=== PATIENT | female | born 1995 | race Caucasian/White ===

== ENCOUNTER 2021-01-26 20:23 | Emergency (ER) | payer SELFPAY ==
[~2021-01-26] VITALS: Ht 152.4 cm; Wt 90.7 kg
== END 2021-01-27 01:11 | disposition home or self-care (01) ==
LOC: ED 20:23
PROC: 0HQGXZZ Repair Left Hand Skin, External Approach (ICD-10-PCS; principal; 2021-01-26)
DX: S61.012A Laceration without foreign body of left thumb without damage to nail, initial encounter (principal); W26.0XXA Contact with knife, initial encounter
CPT/HCPCS: 12001; 99282-25

== ENCOUNTER 2022-10-22 10:15 | Emergency (ER) | payer OTHER ==
[~2022-10-22] VITALS: Ht 152.4 cm; Wt 90.2 kg
[2022-10-22] MEDS ORDERED: PRENA1 PEARL S1 EACH PO (10:33)
== END 2022-10-22 14:55 | disposition home or self-care (01) ==
LOC: ED 10:15
DX: O20.0 Threatened abortion (principal); Z3A.01 Less than 8 weeks gestation of pregnancy
CPT/HCPCS: 36415; 76801; 76817; 84703; 86900; 86901; 99284-25

== ENCOUNTER 2023-01-15 17:27 | Emergency (ER) | payer OTHER ==
[~2023-01-15] VITALS: Ht 152.4 cm; Wt 84.8 kg
[~2023-01-15 17:27] MED LIST: PRENA1 PEARL S1 EACH PO
== END 2023-01-15 21:05 | disposition home or self-care (01) ==
LOC: ED 17:27
DX: O99.612 Diseases of the digestive system complicating pregnancy, second trimester (principal); K80.50 Calculus of bile duct without cholangitis or cholecystitis without obstruction; Z3A.17 17 weeks gestation of pregnancy
CPT/HCPCS: 36415; 76705; 80053; 81003; 83690; 85025; 99284-25; J7030

== ENCOUNTER 2023-06-11 17:24 | Inpatient (IN) | payer OTHER ==
[~2023-06-11] VITALS: Ht 152.4 cm; Wt 87.1 kg
--- NOTE | ~2023-06-11 | OR ---
[facility] [address] [place], [place] [address] Draft DATE OF OPERATION: 06/13/2023 SURGEON: Maddy Meade DO CLIP ON SUNGLASSES ASSEMBLER: Roseline Wolf MD. PROCEDURE: Primary low-transverse . PREOPERATIVE DIAGNOSIS: intolerance to labor, gestational diabetes, noncompliant with recommended testing, obesity. POSTOPERATIVE DIAGNOSIS: Term , delivered, gestational diabetes, noncompliant with testing, occiput posterior positioning, obesity. ANESTHESIA: Epidural. COMPLICATIONS: None. FINDINGS: Viable term female weighing 7 pounds and 9 ounces in the left occiput posterior position. Apgars 8 and 9 at 1 and 5 minutes respectively. Normal-appearing bilateral tubes and ovaries. INDICATIONS: The patient is a 27-year-old, who presented for medical induction of labor for gestational diabetes at 39 weeks gestation. She received Cytotec x2. Amniotomy was performed yielding moderate amount of clear fluid. She progressed well to 7 cm at which point, Pitocin was started. Pitocin could not be titrated to adequate contractions due to intolerance. She remained at 7 to 7.5 cm. Variability became consistently minimal with recurrent late decelerations and delivery was advised. Risks, benefits, alternatives were discussed at length. Consents were signed and she agreed to proceed. PROCEDURE: PATIENT NAME: XAVIER QUEZADA OPERATIVE REPORT DATE OF : [birth year] REPORT #: [id number] PHYSICIAN: MADDY MEADE DO PCP: ARSH CARLOS REPORT IS CONFIDENTIAL AND NOT TO BE RELEASED WITHOUT AUTHORIZATION [facility] [address] [place], [place] [address] Draft Patient was taken back to the operating room where she was given 2 g Ancef and 500 mg azithromycin IV. Internal monitors were removed after confirming heart rate presence in the OR. Vaginal prep was performed. She was otherwise prepped and draped in normal sterile fashion and positioned in supine position with a leftward tilt. Low-transverse skin incision was made 3 cm above tubal Pfannenstiel location and was made with a scalpel and carried down to the underlying layer of fascia, which was nicked in midline and extended laterally with Madden scissors. Inferior margin of fascia was grasped and elevated with Santiago clamps. Underlying rectus muscle was dissected off bluntly and sharply with Mdaden scissors. Inferior margin of fascia was released. Superior margin was grasped and elevated with Santiago clamps and in a similar fashion, underlying rectus muscle was dissected off bluntly and sharply with Madden scissors. Peritoneum was entered bluntly and extended with lateral traction. Vignesh retractor was placed without difficulty, after confirming the pelvis was free of intraabdominal adhesions. Hysterotomy was made with a scalpel just above the vesicouterine reflection. Uterus was entered bluntly digitally and baby's head was easily elevated to the level of the hysterotomy having noted to be in the left occiput posterior position. Umbilical cord was present next to head, but no nuchal cord was present. After delivery of the head, shoulders delivered easily followed by remainder of baby's body. Once delivered, baby gave a strong spontaneous cry as cord was doubly clamped and cut and baby was handed to waiting nursery team. Cord blood was collected for type and Doug. Placenta was manually expressed. Uterus was cleared of clots and debris. Stay suture of 0 Monocryl was placed at the right apex of the hysterotomy and hysterotomy was closed in a double-layer closure with 0 Monocryl first in a running locked fashion, second in an imbricating manner. The area of persistent oozing was noted at the left apex. Oazojz-jj-mtsch stitch x2 was placed with 0 Monocryl after the second stitch. Excellent hemostasis was noted. Pelvis was suction irrigated with warm sterile saline. Uterus, tubes, and ovaries were inspected with normal findings as noted above. Vignesh retractor was removed. The peritoneum was closed with 2-0 Vicryl in a running fashion. Rectus muscle was reapproximated midline with 0 Vicryl in a simple interrupted fashion with excellent re-approximation. Perforating vessels were cauterized with Bovie cautery. This layer was suction irrigated with warm sterile saline. Then fascia was closed with 0 Vicryl in a running fashion working first from right apex to midline, then left apex to midline meeting in the middle. Subcutaneous layer was suction irrigated with warm sterile saline. Perforating vessels were cauterized with Bovie cautery and subcutaneous layer was re-approximated with 3-0 Vicryl in a running fashion. Skin was closed colin. Uterus was cleared with minimal bleeding noted. Sponge and instrument counts were all correct and patient was taken to Recovery in stable and satisfactory condition. Maddy Meade DO PATIENT NAME: XAVIER QUEZADA OPERATIVE REPORT DATE OF : [birth year] REPORT #: [id number] PHYSICIAN: MADDY MEADE DO PCP: ARSH CARLOS REPORT IS CONFIDENTIAL AND NOT TO BE RELEASED WITHOUT AUTHORIZATION [facility] [address] [place] [address] Draft EMZ/MODL /[id number] Copies: ~ PATIENT NAME: XAVIER QUEZADA OPERATIVE REPORT DATE OF : [birth year] REPORT #: [id number] PHYSICIAN: MADDY MEADE DO PCP: ARSH CARLOS REPORT IS CONFIDENTIAL AND NOT TO BE RELEASED WITHOUT AUTHORIZATION
--- OUTSIDE RECORDS SUMMARY | ~2023-06-11 | XMS | Continuity of Care Document ---
Demographics + + + | Address | [address] | | | [place] [address] | + + + | Preferred Language | Unknown | + + + | Marital Status | Never | + + + | Taoist Affiliation | Unknown | + + + | Race | White | + + + | Ethnic Group | Not or | + + + Author + + + | Author | [facility] | + + + | Organization | [facility] | + + + | Address | [address] | | | [place] [address] | + + + | Phone | | + + + Care Team Providers + + + + | Care Communication Specialist Name | Role | Phone | + + + + Unavailable | Unavailable | + + + + Unavailable | Unavailable | + + + + Unavailable | Unavailable | + + + + Allergies and Intolerances + + + + + + | date | description | facility | reaction | severity | + + + + + + | (no date) | No Known Drug | [facility] | (no reaction) | (no severity) | | | Allergies | | | | + + + + + + Encounters No information. Functional Status No information. Immunizations No information. Medications No information. Problems + + + + | date | description | facility | + + + + | 2021-01-27 00:00 | Laceration of left thumb | [facility] | + + + + | 2021-01-27 00:00 | Laceration of left thumb | [facility] | + + + + | 2022-03-17 10:51 | PAIN IN RIGHT ELBOW | [facility] | + + + + | 2022-03-21 00:01 | LATERAL EPICONDYLITIS, | [facility] | | | RIGHT ELBOW | | + + + + | 2022-04-10 15:18 | SECONDARY OLIGOMENORRHEA | [facility] | + + + + | 2022-04-20 10:00 | BRACHIAL PLEXUS DISORDERS | [facility] | + + + + | 2022-04-20 10:00 | OTH DISRD OF SYNOVIUM AND | [facility] | | | TENDON, UNSPECIFIED ELBO | | + + + + | 2022-04-20 10:00 | LATERAL EPICONDYLITIS, | [facility] | | | RIGHT ELBOW | | + + + + | 2022-05-24 10:14 | LATERAL EPICONDYLITIS, | [facility] | | | RIGHT ELBOW | | + + + + | 2022-08-18 16:00 | UNSPECIFIED OVARIAN CYST, | [facility] | | | RIGHT SIDE | | + + + + | 2022-08-18 16:08 | UNSPECIFIED OVARIAN CYST, | [facility] | | | RIGHT SIDE | | + + + + | 2022-10-22 00:00 | Threatened | [facility] | + + + + | 2022-10-22 00:00 | Threatened | [facility] | + + + + | 2022-10-22 10:15 | ABNORMAL UTERINE AND | [facility] | | | VAGINAL BLEEDING, | | | | UNSPECIFIED | | + + + + | 2022-10-22 10:15 | THREATENED | [facility] | + + + + | 2022-10-22 10:15 | LESS THAN 8 WEEKS | [facility] | | | GESTATION OF | | + + + + | 2022-11-08 13:30 | ENCNTR FOR SUPRVSN OF | [facility] | | | NORMAL FIRST PREG, FIRST | | | | TRIMESTER | | + + + + | 2022-11-08 13:30 | LESS THAN 8 WEEKS | [facility] | | | GESTATION OF | | + + + + | 2023-01-15 00:00 | Biliary colic | [facility] | + + + + | 2023-01-15 17:27 | CALCULUS OF BILE DUCT W/O | [facility] | | | CHOLANGITIS OR CHOLECYST | | + + + + | 2023-01-15 17:27 | DISEASES OF THE DGSTV SYS | [facility] | | | COMP , SECOND T | | + + + + | 2023-01-15 17:27 | RIGHT UPPER QUADRANT PAIN | [facility] | + + + + | 2023-01-15 17:27 | 17 WEEKS GESTATION OF | [facility] | | | | | + + + + | 2023-02-05 13:54 | OBESITY, UNSPECIFIED | [facility] | + + + + | 2023-02-05 13:54 | PREG CARE FOR PATIENT W | [facility] | | | RECUR PREG LOSS, SECOND | | | | TRIMESTER | | + + + + | 2023-02-05 13:54 | OBESITY COMPLICATING | [facility] | | | , SECOND T | | + + + + | 2023-02-05 13:54 | 20 WEEKS GESTATION OF | [facility] | | | | | + + + + | 2023-03-28 13:23 | GESTATIONAL DIABETES | [facility] | | | MELLITUS IN , UNSP | | | | CONTROL | | + + + + | 2023-04-26 19:06 | UNSPECIFIED ABDOMINAL PAIN | [facility] | | | | | + + + + | 2023-04-26 19:06 | 32 WEEKS GESTATION OF | [facility] | | | | | + + + + | 2023-05-25 09:59 | GESTATIONAL DIABETES | [facility] | | | MELLITUS IN , UNSP | | | | CONTROL | | + + + + | 2023-06-01 08:50 | GESTATIONAL DIABETES | [facility] | | | MELLITUS IN , DIET | | | | CONTROLLED | | + + + + | 2023-06-01 08:50 | GESTATIONAL DIABETES IN | [facility] | | | , INSUL | | + + + + | 2023-06-01 08:50 | 38 WEEKS GESTATION OF | [facility] | | | | | + + + + | 2023-06-01 09:00 | GESTATIONAL DIABETES IN | [facility] | | | , INSUL | | + + + + | 2023-06-08 07:58 | GESTATIONAL DIABETES IN | [facility] | | | , INSUL | | + + + + | 2023-06-08 08:00 | GESTATIONAL DIABETES IN | [facility] | | | , INSUL | | + + + + Procedures No information. Results/Labs +--------+--------+ +---------+--------+---------+ | test | date | facility | value | unit | notes | +--------+--------+ +---------+--------+---------+ + + | Result panel 1 | + + + + + + + + + | | 2022-10-22 | [facility] | POSITIVE | (missing) | (missing) | | (unavailable | 11:55:08 [facility] | | | | + + + + + + + + + | Result panel 2 | + + + + + +-----+ + + | | 2022-10-22 | [facility] | O | (missing) | (missing) | | (unavailable | 11:55:08 | [facility] | | | | + + + +-----+ + + + + | Result panel 3 | + + + + + + + + + | | 2022-10-22 | [facility] | POSITIVE | (missing) | (missing) | | (unavailable | 11:55:08 | [facility] | | | | + + + + + + + + + | Result panel 4 | + + + + + + + + + | | 2023-01-15 | [facility] | YELLOW | (missing) | (missing) | | (unavailable | 19:30:08 | [facility] | | | | + + + + + + + + + | Result panel 5 | + + + + + +---------+ + + | | 2023-01-15 | [facility] | CLEAR | (missing) | (missing) | | (unavailable | 19:30:08 | [facility] | | | | + + + +---------+ + + + + | Result panel 6 | + + + + + + + + + | | 2023-01-15 | [facility] | NEGATIVE | (missing) | (missing) | | (unavailable | 19:30:08 | [facility] | | | | + + + + + + + + + | Result panel 7 | + + + + + + + + + | | 2023-01-15 | [facility] | NEGATIVE | (missing) | (missing) | | (unavailable | 19:30:08 | [facility] | | | | + + + + + + + + + | Result panel 8 | + + + + + + + + + | | 2023-01-15 | [facility] | NEGATIVE | (missing) | (missing) | | (unavailable | 19:30:08 | [facility] | | | | + + + + + + + + + | Result panel 9 | + + + + + +---------+ + + | | 2023-01-15 | [facility] | 1.025 | (missing) | (missing) | | (unavailable | 19:30:08 | [facility] | | | | + + + +---------+ + + + + | Result panel 10 | + + + + + + + + + | | 2023-01-15 | [facility] | NEGATIVE | (missing) | (missing) | | (unavailable | 19:30:08 | [facility] | | | | + + + + + + + + + | Result panel 11 | + + + + + +-------+ + + | | 2023-01-15 | [facility] | 6.0 | (missing) | (missing) | | (unavailable | 19:30:08 | [facility] | | | | + + + +-------+ + + + + | Result panel 12 | + + + + + + + + + | | 2023-01-15 | [facility] | NEGATIVE | (missing) | (missing) | | (unavailable | 19:30:08 | [facility] | | | | + + + + + + + + + | Result panel 13 | + + + + + + + + + | | 2023-01-15 | [facility] | NORMAL | (missing) | (missing) | | (unavailable | 19:30:08 | [facility] | | | | + + + + + + + + + | Result panel 14 | + + + + + + + + + | | 2023-01-15 | [facility] | NEGATIVE | (missing) | (missing) | | (unavailable | 19:30:08 | [facility] | | | | + + + + + + + + + | Result panel 15 | + + + + + + + + + | | 2023-01-15 | [facility] | NEGATIVE | (missing) | (missing) | | (unavailable | 19:30:08 | [facility] | | | | + + + + + + + + + | Result panel 16 | + + + + + +--------+ + + | | 2023-01-15 | [facility] | 18.0 | (missing) | (missing) | | (unavailable | 19:33:08 | [facility] | | | | + + + +--------+ + + + + | Result panel 17 | + + + + + +--------+ + + | | 2023-01-15 | [facility] | 77.5 | (missing) | (missing) | | (unavailable | 19:33:08 | [facility] | | | | + + + +--------+ + + + + | Result panel 18 | + + + + + +--------+ + + | | 2023-01-15 | [facility] | 14.9 | (missing) | (missing) | | (unavailable | 19:33:08 | [facility] | | | | + + + +--------+ + + + + | Result panel 19 | + + + + + +-------+ + + | | 2023-01-15 | [facility] | 6.1 | (missing) | (missing) | | (unavailable | 19:33:08 | [facility] | | | | + + + +-------+ + + + + | Result panel 20 | + + + + + +-------+ + + | | 2023-01-15 | [facility] | 0.8 | (missing) | (missing) | | (unavailable | 19:33:08 | [facility] | | | | + + + +-------+ + + + + | Result panel 21 | + + + + + +-------+ + + | | 2023-01-15 | [facility] | 0.7 | (missing) | (missing) | | (unavailable | 19:33:08 | [facility] | | | | + + + +-------+ + + + + | Result panel 22 | + + + + + +--------+ + + | | 2023-01-15 | [facility] | 4.64 | (missing) | (missing) | | (unavailable | 19:33:08 | [facility] | | | | + + + +--------+ + + + + | Result panel 23 | + + + + + +------+---------+ + | | 2023-01-15 | [facility] | 86 | mg/dL | (missing) | | (unavailable | 19:33:08 | [facility] | | | | + + + +------+---------+ + + + | Result panel 24 | + + + + + +-----+---------+ + | | 2023-01-15 | [facility] | 5 | mg/dL | (missing) | | (unavailable | 19:33:08 | [facility] | | | | + + + +-----+---------+ + + + | Result panel 25 | + + + + + +--------+---------+ + | | 2023-01-15 | [facility] | 0.64 | mg/dL | (missing) | | (unavailable | 19:33:08 | [facility] | | | | + + + +--------+---------+ + + + | Result panel 26 | + + + + + +--------+ + + | | 2023-01-15 | [facility] | 12.8 | (missing) | (missing) | | (unavailable | 19:33:08 | [facility] | | | | + + + +--------+ + + + + | Result panel 27 | + + + + + +-------+ + + | | 2023-01-15 | [facility] | 123 | (missing) | (missing) | | (unavailable | 19:33:08 | [facility] | | | | + + + +-------+ + + + + | Result panel 28 | + + + + + +--------+ + + | | 2023-01-15 | [facility] | 7.81 | (missing) | (missing) | | (unavailable | 19:33:08 | [facility] | | | | + + + +--------+ + + + + | Result panel 29 | + + + + + +-------+ + + | | 2023-01-15 | [facility] | 136 | (missing) | (missing) | | (unavailable | 19:33:08 | [facility] | | | | + + + +-------+ + + + + | Result panel 30 | + + + + + +-------+ + + | | 2023-01-15 | [facility] | 3.2 | (missing) | (missing) | | (unavailable | 19:33:08 | [facility] | | | | + + + +-------+ + + + + | Result panel 31 | + + + + + +-------+ + + | | 2023-01-15 | [facility] | 101 | (missing) | (missing) | | (unavailable | 19:33:08 | [facility] | | | | + + + +-------+ + + + + | Result panel 32 | + + + + + +------+ + + | | 2023-01-15 | [facility] | 25 | (missing) | (missing) | | (unavailable | 19:33:08 | [facility] | | | | + + + +------+ + + + + | Result panel 33 | + + + + + +--------+ + + | | 2023-01-15 | [facility] | 13.2 | (missing) | (missing) | | (unavailable | 19:33:08 | [facility] | | | | + + + +--------+ + + + + | Result panel 34 | + + + + + +-------+---------+ + | | 2023-01-15 | [facility] | 9.3 | mg/dL | (missing) | | (unavailable | 19:33:08 | [facility] | | | | + + + +-------+---------+ + + + | Result panel 35 | + + + + + +-------+ + + | | 2023-01-15 | [facility] | 7.5 | (missing) | (missing) | | (unavailable | :33:08 | [facility] | | | | + + + +-------+ + + + + | Result panel 36 | + + + + + +-------+ + + | | 2023-01-15 | [facility] | 3.2 | (missing) | (missing) | | (unavailable | 19:33:08 | [facility] | | | | + + + +-------+ + + + + | Result panel 37 | + + + + + +--------+ + + | | 2023-01-15 | [facility] | 39.6 | (missing) | (missing) | | (unavailable | 19:33:08 | [facility] | | | | + + + +--------+ + + + + | Result panel 38 | + + + + + +-------+ + + | | 2023-01-15 | [facility] | 4.3 | (missing) | (missing) | | (unavailable | 19:33:08 | [facility] | | | | + + + +-------+ + + + + | Result panel 39 | + + + + + +--------+ + + | | 2023-01-15 | [facility] | 0.74 | (missing) | (missing) | | (unavailable | 19:33:08 | [facility] | | | | + + + +--------+ + + + + | Result panel 40 | + + + + + +-------+ + + | | 2023-01-15 | [facility] | 0.2 | (missing) | (missing) | | (unavailable | 19:33:08 | [facility] | | | | + + + +-------+ + + + + | Result panel 41 | + + + + + +------+ + + | | 2023-01-15 | [facility] | 22 | (missing) | (missing) | | (unavailable | 19:33:08 | [facility] | | | | + + + +------+ + + + + | Result panel 42 | + + + + + +------+ + + | | 2023-01-15 | [facility] | 28 | (missing) | (missing) | | (unavailable | 19:33:08 | [facility] | | | | + + + +------+ + + + + | Result panel 43 | + + + + + +------+ + + | | 2023-01-15 | [facility] | 79 | (missing) | (missing) | | (unavailable | 19:33:08 | [facility] | | | | + + + +------+ + + + + | Result panel 44 | + + + + + +------+ + + | | 2023-01-15 | [facility] | 98 | (missing) | (missing) | | (unavailable | 19:33:08 [facility] | | | | + + + +------+ + + + + | Result panel 45 | + + + + + +--------+ + + | | 2023-01-15 | [facility] | 85.3 | (missing) | (missing) | | (unavailable | 19:33:08 [facility] | | | | + + + +--------+ + + + + | Result panel 46 | + + + + + +--------+ + + | | 2023-01-15 | [facility] | 27.5 | (missing) | (missing) | | (unavailable | 19:33:08 [facility] | | | | + + + +--------+ + + + + | Result panel 47 | + + + + + +--------+ + + | | 2023-01-15 | [facility] | 32.3 | (missing) | (missing) | | (unavailable | 19:33:08 [facility] | | | | + + + +--------+ + + + + | Result panel 48 | + + + + + +--------+ + + | | 2023-01-15 | [facility] | 14.6 | (missing) | (missing) | | (unavailable | 19:33:08 [facility] | | | | + + + +--------+ + + + + | Result panel 49 | + + + + + +-------+ + + | | 2023-01-15 | [facility] | 372 | (missing) | (missing) | | (unavailable | 19:33:08 [facility] | | | | + + + +-------+ + + Social History No information. Vital Signs + + + +---------+ | date | measurement | value | units | + + + +---------+ | 2022-10-22 00:00 | BMI | 38.8 | kg/m2 | + + + +---------+ | 2022-10-22 00:00 | BP_diastolic | 71 | mmHg | + + + +---------+ | 2022-10-22 00:00 | BP_systolic | 124 | mmHg | + + + +---------+ | 2022-10-22 00:00 | heart_rate | 70 | /min | + + + +---------+ | 2022-10-22 00:00 | height_metric | 152.4 | cm | + + + +---------+ | 2022-10-22 00:00 | height_standard | 60 | in | + + + +---------+ | 2022-10-22 00:00 | o2_saturation | 100 | % | + + + +---------+ | 2022-10-22 00:00 | respiration_rate | 16 | /min | + + + +---------+ | 2022-10-22 00:00 | temperature_metric | 36.83 | C | | | | | | + + + +---------+ | 2022-10-22 00:00 | | 98.3 | F | | | temperature_standar | | | | | d | | | + + + +---------+ | 2022-10-22 00:00 | weight_metric | 90.2 | kg | + + + +---------+ | 2022-10-22 00:00 | weight_standard | 198.86 | lb | + + + +---------+ | 2023-01-15 00:00 | BMI | 36.5 | kg/m2 | + + + +---------+ | 2023-01-15 00:00 | BP_diastolic | 88 | mmHg | + + + +---------+ | 2023-01-15 00:00 | BP_systolic | 131 | mmHg | + + + +---------+ | 2023-01-15 00:00 | heart_rate | 76 | /min | + + + +---------+ | 2023-01-15 00:00 | height_metric | 152.4 | cm | + + + +---------+ | 2023-01-15 00:00 | height_standard | 60 | in | + + + +---------+ | 2023-01-15 00:00 | o2_saturation | 99 | % | + + + +---------+ | 2023-01-15 00:00 | respiration_rate | 16 | /min | + + + +---------+ | 2023-01-15 00:00 | temperature_metric | 36.94 | C | | | | | | + + + +---------+ | 2023-01-15 00:00 | | 98.5 | F | | | temperature_standar | | | | | d | | | + + + +---------+ | 2023-01-15 00:00 | weight_metric | 84.85 | kg | + + + +---------+ | 2023-01-15 00:00 | weight_standard | 187.06 | lb | + + + +---------+"
[2023-06-12 01:47] VITALS: BP 124/68
[2023-06-12] MEDS ORDERED: IRON325 M1 PO (03:53)
--- NOTE | 2023-06-12 07:34 | PR ---
[facility] [address] [place], [place] [address] Signed Progress Notes IP Datetime Report Generated by CPN: 06/12/2023 07:34 PROGRESS NOTES: [id number] Plan: Continue Present Management VITAL SIGNS: [id number] EXAM: [id number] Dilatation: 2.0 Effacement: 70 Station: -3 Contractions: acontractile on monitor MEMBRANES: [id number] Membranes Status: Intact Comments: Pt sleeping. Reassuring FHR. Continue cytotec induction, s/p cytotec x 2 FETUS A: [id number] FHR Baseline: 135 Variability: Moderate 6-25bpm Accelerations: 15X15 Decelerations: None FHR Category: Category I Presentation: Vertex Comments on Fetus A: No evidence of acidemia FETUS B: [id number] Signing Physician: Maddy Meade DO Copies: ~ *Electronically Signed* 06/12/23 0734 MADDY MEADE DO PATIENT NAME: XAVIER QUEZADA PROGRESS NOTE DATE OF : 89 PHYSICIAN: MADDY MEADE DO [facility] #: [phone] REPORT IS CONFIDENTIAL AND NOT TO BE RELEASED WITHOUT AUTHORIZATION
--- NOTE | 2023-06-12 09:18 | PR ---
[facility] [address] [place], [place] [address] Signed Progress Notes IP Datetime Report Generated by CPN: 06/12/2023 09:18 PROGRESS NOTES: [id number] Impression: Normal Progression of Labor; Reassuring Heart Rate Procedures: Artificial ROM Plan: Continue Present Management VITAL SIGNS: [id number] EXAM: [id number] Dilatation: 4.0 Effacement: 70 Station: -3 Contractions: acontractile on monitor MEMBRANES: [id number] Membranes Status: Ruptured Comments: Progressing well, see [facility] note. Contractions mild, pt experiencing cramping. Plan: recheck in 2h. Epidural ok upon pt request. FETUS A: [id number] FHR Baseline: 135 Variability: Moderate 6-25bpm Accelerations: 15X15 Decelerations: None FHR Category: Category I Presentation: Vertex Comments on Fetus A: No evidence of acidemia FETUS B: [id number] Signing Physician: Maddy Meade DO Copies: ~ *Electronically Signed* 06/12/23917 MADDY MEADE DO PATIENT NAME: PILARXAVIER PROGRESS NOTE DATE OF : [birth year] PHYSICIAN: MADDY MEADE DO [facility] #: [id number] REPORT IS CONFIDENTIAL AND NOT TO BE RELEASED WITHOUT AUTHORIZATION
--- NOTE | 2023-06-12 16:06 | PR ---
[facility] [address] [facility] [place], [place] [address] Signed Progress Notes IP Datetime Report Generated by CPN: 06/12/2023 16:06 PROGRESS NOTES: [id number] Impression: Normal Progression of Labor; Reassuring Heart Rate Procedures: Artificial ROM Plan: Anesthesia Consult VITAL SIGNS: [id number] EXAM: [id number] Dilatation: 6.0 Effacement: 90 Station: -2 Contractions: acontractile on monitor MEMBRANES: [id number] Membranes Status: Ruptured Comments: Pt requesting epidural rebolus. Will try hands and knees positioning in the meantime. If unchanged once comfortable again with epidural, plan to start low-dose pitocin FETUS A: [id number] FHR Baseline: 135 Variability: Moderate 6-25bpm Accelerations: 15X15 Decelerations: None FHR Category: Category I Presentation: Vertex Comments on Fetus A: No evidence of acidemia FETUS B: [id number] Signing Physician: Maddy Meade DO Copies: ~ *Electronically Signed* 06/12/23 1606 MADDY MEADE DO PATIENT NAME: OLIVIERXAVIER ARTEAGA PROGRESS NOTE DATE OF : [birth year] PHYSICIAN: MADDY MEADE DO [facility] #: [id number] REPORT IS CONFIDENTIAL AND NOT TO BE RELEASED WITHOUT AUTHORIZATION
--- NOTE | 2023-06-12 18:33 | PR ---
[facility] [address] [facility] [place], [place] [address] Signed Progress Notes IP Datetime Report Generated by CPN: 06/12/2023 18:33 PROGRESS NOTES: [id number] Impression: Normal Progression of Labor; Reassuring Heart Rate Procedures: Artificial ROM Plan: Anesthesia Consult VITAL SIGNS: [id number] EXAM: [id number] Dilatation: 7.0 Effacement: 95 Station: -2 Contractions: acontractile on monitor MEMBRANES: [id number] Membranes Status: Ruptured Comments: Start pitocin, titrate as tolerated FETUS A: [id number] FHR Baseline: 135 Variability: Moderate 6-25bpm Accelerations: 15X15 Decelerations: None FHR Category: Category I Presentation: Vertex Comments on Fetus A: No evidence of acidemia FETUS B: [id number] Signing Physician: Maddy Meade DO Copies: ~ *Electronically Signed* 06/12/23 183 MADDY MEADE DO PATIENT NAME: XAVIER QUEZADA PROGRESS NOTE DATE OF : 93 PHYSICIAN: MADDY MEADE DO [facility] #: [id number] REPORT IS CONFIDENTIAL AND NOT TO BE RELEASED WITHOUT AUTHORIZATION
--- NOTE | 2023-06-12 19:21 | PR ---
[facility] [address] [facility] [place], [place] [address] Signed Progress Notes IP Datetime Report Generated by CPN: 06/12/2023 19:20 PROGRESS NOTES: [id number] Impression: Normal Progression of Labor; Reassuring Heart Rate Procedures: Artificial ROM Plan: Continue Present Management VITAL SIGNS: [id number] EXAM: [id number] Dilatation: 7.0 Effacement: 95 Station: -2 Contractions: acontractile on monitor MEMBRANES: [id number] Membranes Status: Ruptured Comments: Pt reported feeling urge to have BM. Rechecked, no change, continue pitocin. FETUS A: [id number] FHR Baseline: 135 Variability: Moderate 6-25bpm Accelerations: 15X15 Decelerations: None FHR Category: Category I Presentation: Vertex Comments on Fetus A: No evidence of acidemia FETUS B: [id number] Signing Physician: Maddy Meade DO Copies: ~ *Electronically Signed* 06/12/231919 MADDY MEADE DO PATIENT NAME: HUMAIRA QUEZADAY ALFONSO PROGRESS NOTE DATE OF : [birth year] PHYSICIAN: MADDY MEADE DO RPT #: [id number] REPORT IS CONFIDENTIAL AND NOT TO BE RELEASED WITHOUT AUTHORIZATION
--- NOTE | 2023-06-12 22:47 | PR ---
[facility] [address] [facility] [place] [address] Signed Progress Notes IP Datetime Report Generated by CPN: 06/12/2023 22:46 PROGRESS NOTES: [id number] Impression: Normal Progression of Labor; Reassuring Heart Rate Procedures: Artificial ROM Plan: Continue Present Management VITAL SIGNS: [id number] EXAM: [id number] Dilatation: 7.0 Effacement: 85 Station: -2 Contractions: acontractile on monitor MEMBRANES: [id number] Membranes Status: Ruptured Comments: Pt in hands and knees, epidural just rebolused. Contractions tracing very irregularly; plan to switch from [place] monitor to internal monitors once pt ready to move from hands and knees position. Plan to continue low-dose pitocin and extreme maternal positions. FETUS A: [id number] FHR Baseline: 135 Variability: Moderate 6-25bpm Accelerations: 15X15 Decelerations: None FHR Category: Category I Presentation: Vertex Comments on Fetus A: No evidence of acidemia FETUS B: [id number] Signing Physician: Maddy Meade DO Copies: ~ *Electronically Signed* 06/12/23 2246 MADDY MEADE DO PATIENT NAME: XAVIER QUEZADA PROGRESS NOTE DATE OF : [birth year] PHYSICIAN: MADDY MEADE DO RPT #: [id number] REPORT IS CONFIDENTIAL AND NOT TO BE RELEASED WITHOUT AUTHORIZATION
--- NOTE | 2023-06-12 23:38 | PR ---
[facility] [address] [facility] [place], [place] [address] Signed Progress Notes IP Datetime Report Generated by CPN: 06/12/2023 23:38 PROGRESS NOTES: [id number] Impression: Normal Progression of Labor; Reassuring Heart Rate Procedures: Intrauterine Pressure Catheter; Scalp Electrode Plan: Continue Present Management VITAL SIGNS: [id number] EXAM: [id number] Dilatation: 7.0 Effacement: 85 Station: -2 Contractions: acontractile on monitor MEMBRANES: [id number] Membranes Status: Ruptured Comments: Internal monitors placed without difficulty. Continue pitocin, titrate to adequate contractions. FETUS A: [id number] FHR Baseline: 135 Variability: Moderate 6-25bpm Accelerations: 15X15 Decelerations: None FHR Category: Category I Presentation: Vertex Comments on Fetus A: No evidence of acidemia FETUS B: [id number] Signing Physician: Maddy Meade DO Copies: ~ *Electronically Signed* 06/12/23 2338 MADDY MEADE DO PATIENT NAME: HUMAIRA QUEZADASaul BLANDONE PROGRESS NOTE DATE OF : [birth year] PHYSICIAN: MADDY MEADE DO RPT #: [id number] REPORT IS CONFIDENTIAL AND NOT TO BE RELEASED WITHOUT AUTHORIZATION
--- NOTE | 2023-06-13 00:57 | PR ---
[facility] [address] [facility] [place], [place] [address] Signed Progress Notes IP Datetime Report Generated by CPN: 06/13/2023 00:57 PROGRESS NOTES: [id number] Impression: Normal Progression of Labor; Reassuring Heart Rate Procedures: Intrauterine Pressure Catheter; Scalp Electrode Plan: Continue Present Management VITAL SIGNS: [id number] EXAM: [id number] Dilatation: 7.0 Effacement: 85 Station: -2 Contractions: acontractile on monitor MEMBRANES: [id number] Membranes Status: Ruptured Comments: Cervix palpable on pt's right, not on left. Continue IV fluid bolus, recheck in 20-30 minutes or sooner if needed FETUS A: [id number] FHR Baseline: 135 Variability: Moderate 6-25bpm Accelerations: 15X15 Decelerations: None FHR Category: Category I Presentation: Vertex Comments on Fetus A: No evidence of acidemia FETUS B: [id number] Signing Physician: Maddy Meade DO Copies: ~ *Electronically Signed* 06/13/23 MADDY MEAD DO PATIENT NAME: XAVIER QUEZADA PROGRESS NOTE DATE OF : 93 PHYSICIAN: MADDY MEADE #: [id number] REPORT IS CONFIDENTIAL AND NOT TO BE RELEASED WITHOUT AUTHORIZATION
--- NOTE | 2023-06-13 01:23 | PR ---
[facility] [address] [place], [place] [address] Signed Progress Notes IP Datetime Report Generated by CPN: 06/13/2023 01:23 PROGRESS NOTES: [id number] Impression: Normal Progression of Labor; Reassuring Heart Rate Procedures: Intrauterine Pressure Catheter; Scalp Electrode Plan: Continue Present Management VITAL SIGNS: [id number] EXAM: [id number] Dilatation: 7.0 Effacement: 90 Station: -2 Contractions: acontractile on monitor MEMBRANES: [id number] Membranes Status: Ruptured Comments: BP rechecked with arms level (rather than cuff on left arm while sidelying on right), normotensive. Appropriate response to scalp stim. However, right side of cervix feels slightly edematous; reposition to left lateral. Discussed contractions are still not yet adequate despite pitocin. Will continue close clinical monitoring FETUS A: [id number] FHR Baseline: 135 Variability: Moderate 6-25bpm Accelerations: 15X15 Decelerations: None FHR Category: Category I Presentation: Vertex Comments on Fetus A: No evidence of acidemia FETUS B: [id number] Signing Physician: Maddy Meade DO Copies: ~ *Electronically Signed* 06/13/23 0123 MADDY MEADE DO PATIENT NAME: XAVIER QUEZADA PROGRESS NOTE DATE OF : 93 PHYSICIAN: MADDY MEADE #: [id number] REPORT IS CONFIDENTIAL AND NOT TO BE RELEASED WITHOUT AUTHORIZATION
--- NOTE | 2023-06-13 02:23 | PR ---
[facility] [address] [place], [place] [address] Signed Progress Notes IP Datetime Report Generated by THUAN: 06/13/2023 02:23 PROGRESS NOTES: [id number] Impression: Non-reassuring Heart Rate Procedures: Intrauterine Pressure Catheter; Scalp Electrode Plan: Deliver- Section VITAL SIGNS: [id number] EXAM: [id number] Dilatation: 7.0 Effacement: 90 Station: -2 Contractions: acontractile on monitor MEMBRANES: [id number] Membranes Status: Ruptured Comments: Discussed with pt: despite repositioning, baby having recurrent late decelerations. Unable to increase pitocin further to titrate to adequate contractions; delivery is recommended. Risks, benefits, and alternatives were discussed at length including risks of bleeding, infection, pain, prolonged healing, need for RLTCS or TOLAC referral for future pregnancies, increased risk of complication with future and/or future abdominal surgery. Discussed concern for wellbeing and plan for strategic marketing leader to be present at delivery. Questions answered to the best of my ability to patient's apparent satisfaction and she elected to proceed. Consents signed, OR crew notified. Plan: Ancef 2g and Azithromycin 500mg for surgical prophylaxis. Hemorrhage kit to be present in OR. FETUS A: [id number] FHR Baseline: 135 Variability: Moderate 6-25bpm Accelerations: 15X15 Decelerations: None FHR Category: Category I Presentation: Vertex Comments on Fetus A: No evidence of acidemia FETUS B: [id number] Signing Physician: Maddy Meade DO Copies: *Electronically Signed* 06/13/23222 MADDY MEADE DO PATIENT NAME: XAVIER QUEZADA PROGRESS NOTE DATE OF : 93 PHYSICIAN: MADDY MEADE DO RPT #: [id number] REPORT IS CONFIDENTIAL AND NOT TO BE RELEASED WITHOUT AUTHORIZATION [address] [place] [address] Signed ~ *Electronically Signed* 06/13/23222 MADDY MEADE DO PATIENT NAME: XAVIER QUEZADA PROGRESS NOTE DATE OF : 93 PHYSICIAN: MADDY MEADE DO RPT #: [id number] REPORT IS CONFIDENTIAL AND NOT TO BE RELEASED WITHOUT AUTHORIZATION
--- NOTE | 2023-06-13 04:07 | NUR ---
06/13/23 0407 Norma Epps [id number] PATIENT INTO ROOM 106. PATIENT DROWSY. PATIENT ON 6 LITERS OF OXYGEN. BREATHING EQUAL AND UNLABORED. OXYGEN SATURATIONS ABOVE 95%. SR ON TELE. RR 12-20. SPINAL CHECK COMPLETE. FUNDAL MASSAGE COMPLETE. PATIENT DENIES ANY PAIN OR BEING NAUSEATED. 0358 PATIENT OXYGEN TITRATED TO ROOM AIR. PATIENT BREATHING EQUAL AND UNLABORED. OXYGEN SATURATIONS ABOVE 90%. SR ON TELE. PATIENT DENIES NAUSEATED. PATIENT FUNDAL MASSAGE COMPLETE. IVF INFUSING WITH 30 OF PIT. PATIENT DENIES ANY PAIN. AT BEDSIDE.
[2023-06-13 04:33] VITALS: BP 109/55
--- NOTE | 2023-06-14 12:54 | PR ---
[facility] [address] [place], [place] [address] Signed PP Progress Notes Datetime Report Generated by CPShraddha: 06/14/2023 12:54 SUBJECTIVE: [id number] Pain: Within Normal Limits Nausea/Vomiting: Denies Flatus: Yes Bowel Movement: No Vital Signs: [id number] Vital Signs: Reviewed; Within Normal Limits Cardiovascular: Normal Respiratory: Normal Abdomen/Uterus: Normal Lochia: Normal Breasts: Normal Extremities: Normal Incision: Normal Progress: Normal Exam Comments: NAD, sitting in bed nursing baby RRR No dyspnea/ retractions Abd SNTND, FFBU IMPRESSION/PLAN/PROCEDURES: [id number] Impression: Normal Progression Plan: Continue Present Management Progress Notes: POD#1 s/p PLTCS for intolerance to labor, occiput posterior Progressing well postop: ambulating, voiding, tolerating regular diet. +Flatus. Pain well-controlled with orals and ice to incision. Discussed appropriate hgb shift postop; plan to resume daily oral iron upon discharge once having bowel movements Undecided re: contraception, planning abstinence for now well anticipate DC to home tomorrow (POD#2) Signing Physician: Maddy Meade DO Copies: *Electronically Signed* 06/14/23 1254 MADDY MEADE DO PATIENT NAME: XAVIER QUEZADA PROGRESS NOTE DATE OF : 93 PHYSICIAN: MADDY MEADE DO RPT #: [id number] REPORT IS CONFIDENTIAL AND NOT TO BE RELEASED WITHOUT AUTHORIZATION [facility] [address] [place] [id number] Signed ~ *Electronically Signed* 06/14/23 1254 MADDY MEADE DO PATIENT NAME: XAVIER QUEZADA PROGRESS NOTE DATE OF : 93 PHYSICIAN: MADDY MEADE DO RPT #: [id number] REPORT IS CONFIDENTIAL AND NOT TO BE RELEASED WITHOUT AUTHORIZATION
--- NOTE | 2023-06-14 13:25 | NUR ---
MOM IN BED WITH BABY AT BREAST. SHORT VISIT. MOM INTERACTED TENDERLY WITH BABY.
--- NOTE | 2023-06-15 09:18 | PR ---
[facility] [address] [place], [place] [address] Signed PP Progress Notes Datetime Report Generated by CPShraddha: 06/15/2023 09:17 SUBJECTIVE: [id number] Pain: Within Normal Limits Nausea/Vomiting: Denies Flatus: Yes Bowel Movement: Yes Vital Signs: [id number] Vital Signs: Reviewed; Within Normal Limits EXAM: Ongoing Cardiovascular: Normal Respiratory: Normal Abdomen/Uterus: Normal Lochia: Normal Breasts: Normal Extremities: Normal Incision: Normal Progress: Normal Exam Comments: NAD RRR No dyspnea / retractions Abd SNTND, FFBU Incision c/d/i Ext trace edema, neg [place]'s BL IMPRESSION/PLAN/PROCEDURES: [id number] Impression: Normal Progression Plan: Continue Present Management; Discharge Progress Notes: POD#2 s/p PLTCS for intolerance to labor, occiput posterior -progressing well postop: ambulating, voiding, tolerating regular diet, pain well-controlled with tylenol/ motrin - well -undecided re: contraception Plan: DC to home today. Outpatient follow-up on Sunday (3d) for staple removal in office Signing Physician: Maddy Meade DO *Electronically Signed* 06/15/23916 MADDY MEADE DO PATIENT NAME: XAVIER QUEZADA PROGRESS NOTE DATE OF : 93 PHYSICIAN: MADDY MEADE DO RPT #: [id number] REPORT IS CONFIDENTIAL AND NOT TO BE RELEASED WITHOUT AUTHORIZATION [facility] [address] [facility] [place], [place] [address] Signed Copies: ~ *Electronically Signed* 06/15/23 09 MADDY MEADE DO PATIENT NAME: XAVEIR QUEZADA PROGRESS NOTE DATE OF : 93 PHYSICIAN: MADDY MEADE DO RPT #: [id number] REPORT IS CONFIDENTIAL AND NOT TO BE RELEASED WITHOUT AUTHORIZATION
--- NOTE | 2023-06-15 11:47 | NUR ---
PT SITTING AT TABLE WORKING ON PAPERWORK. DAD HOLDING BABY. LOVING INTERACTION EXHIBITED. STATED LOOKING FORWARD TO GOING HOME. SAYS HAVE GOOD SUPPORT. DENIED NEEDS.
== END 2023-06-15 13:05 | disposition home or self-care (01) | DRG 788 ==
LOC: FBC 06-12 00:01
PROVIDERS: ADMIT Obstetrics & Gynecology; ATTEND Obstetrics & Gynecology
PROC: 10907ZC Drainage of Amniotic Fluid, Therapeutic from Products of Conception, Via Natural or Artificial Opening (ICD-10-PCS; 2023-06-12)
PROC: 3E033VJ Introduction of Other Hormone into Peripheral Vein, Percutaneous Approach (ICD-10-PCS; 2023-06-12)
PROC: 10H07YZ Insertion of Other Device into Products of Conception, Via Natural or Artificial Opening (ICD-10-PCS; 2023-06-12)
PROC: 4A1HXCZ Monitoring of Products of Conception, Cardiac Rate, External Approach (ICD-10-PCS; 2023-06-12)
PROC: 00HU33Z Insertion of Infusion Device into Spinal Canal, Percutaneous Approach (ICD-10-PCS; 2023-06-12)
PROC: 3E0R3BZ Introduction of Anesthetic Agent into Spinal Canal, Percutaneous Approach (ICD-10-PCS; 2023-06-12)
PROC: 3E0P7VZ Introduction of Hormone into Female Reproductive, Via Natural or Artificial Opening (ICD-10-PCS; 2023-06-12)
PROC: 10D00Z1 Extraction of Products of Conception, Low, Open Approach (ICD-10-PCS; principal; 2023-06-13 02:40)
DX: O24.420 Gestational diabetes mellitus in childbirth, diet controlled (principal); O99.824 Streptococcus B carrier state complicating childbirth; Z37.0 Single live birth; O99.214 Obesity complicating childbirth; Z3A.39 39 weeks gestation of pregnancy; Z67.40 Type O blood, Rh positive; Z98.890 Other specified postprocedural states; Z79.899 Other long term (current) drug therapy
CPT/HCPCS: 01961; 36415; 85027; 86850; 86900; 86901; A9270; J0456; J0690; J1650; J1885; J2175; J2250; J2274; J2405; J2540; J2590; J2765; J2795; J7121

== ENCOUNTER 2024-07-18 20:03 | Emergency (ER) | payer OTHER ==
[~2024-07-18] VITALS: Ht 152.4 cm; Wt 97.0 kg
[~2024-07-18 20:03] MED LIST changes: +IRON325 M1 PO
[2024-07-18] MEDS ORDERED: FAMOTIDINE 20 MG/ 2 ML VIAL IV ONE (20:45)
[2024-07-18] MEDS ORDERED: ondansetron HCL 4 MG/2 ML VIAL IV ONE (20:45)
[2024-07-18] MEDS ORDERED: LACTATED RINGER'S 1,000 ML IV ONE (20:45)
[2024-07-18 21:07] LABS: BASOPHILS 0.6 % (0-2); EOSINOPHILS 4.2 % (0-6); HEMATOCRIT 39.3 % (35.0-50.0); HEMOGLOBIN 13.2 g/dL (12.0-18.0); LYMPHOCYTES 23.3 % (24-44); MCH 28.3 (27-36); MCHC 33.6 g/dl (30-36); MCV 84.1 fl (81-99); MONOCYTES 7.7 % (0-12); NEUTROPHILS 64.2 % (39-80); PLATELET COUNT 352 K/uL (140-440); RBC 4.68 M/ul (4.3-5.7)
[2024-07-18 21:25] LABS: ALBUMIN 3.5 g/dL (3.4-5.0); ALBUMIN/GLOBULIN RATIO 0.97 (1.1-2.4); ALKALINE PHOSPHATASE 91 U/L (46-116); ALT (SGPT) 43 U/L (14-59); ANION GAP 10.6 (7-21); AST (SGOT) 21 U/L (15-37); BILIRUBIN, TOTAL 0.2 ng/dL (0.2-1.0); BUN/CREATININE RATIO 8.69 (6.0-28.6); CALCIUM 8.6 mg/dL (8.5-10.1); CARBON DIOXIDE 30 mmol/L (21-32); CHLORIDE 104 mmol/L (98-107); CREATININE, SERUM 0.92 mg/dL (0.55-1.02); GLOMERULAR FILTRATION RATE,EST 86 mL/min (>60); POTASSIUM 3.6 mmol/L (3.5-5.1); PROTEIN, TOTAL 7.1 g/dL (6.4-8.2); UREA NITROGEN 8 mg/dL (7-18)
[2024-07-18 21:45] LABS: BILIRUBIN, URINE NEGATIVE (negative); BLOOD/HGB, URINE NEGATIVE (Negative); KETONE, URINE NEGATIVE (Negative); LEUK ESTERASE, URINE NEGATIVE (negative); NITRITE, URINE NEGATIVE (negative)
[2024-07-18] MEDS ORDERED: OMEPRAZOLE20 MG PO (22:07)
[2024-07-18 22:16] LABS: AMPHETAMINES, URINE NEGATIVE (NEGATIVE); BARBITURATES, URINE NEGATIVE (NEGATIVE); BENZODIAZEPINE, URINE NEGATIVE (NEGATIVE); BUPRENORPHINE, URINE NEGATIVE (NEGATIVE); CANNABINOID, URINE NEGATIVE (NEGATIVE); COCAINE, URINE NEGATIVE (NEGATIVE); ECSTASY, URINE NEGATIVE (NEGATIVE); FENTANYL, URINE NEGATIVE (NEGATIVE); METHADONE, URINE NEGATIVE (NEGATIVE); OPIATES, URINE NEGATIVE (NEGATIVE); OXYCODONE, URINE NEGATIVE (NEGATIVE); PHENCYCLIDINE, URINE NEGATIVE (NEGATIVE)
[2024-07-18 22:17] VITALS: BP 111/69
--- NOTE | 2024-07-20 09:00 | EKG ---
[facility] [address] [facility] [place], [place] [address] Signed Normal sinus rhythm with sinus arrhythmia Normal ECG No previous ECGs available Confirmed by Amie Mcknight MD ([id number]) on 07/20/2024 9:00:31 AM Electronically Signed By: AMIE MCKNIGHT 07/20/24 0900 PATIENT NAME: XAVIER QUEZADA Electrocardiogram DATE OF : [birth year] PHYSICIAN: AMIE MCKNIGHT REPORT #: [id number] REPORT IS CONFIDENTIAL AND NOT TO BE RELEASED WITHOUT AUTHORIZATION
== END 2024-07-18 22:17 | disposition home or self-care (01) ==
LOC: ED 20:03
PROVIDERS: Internal Medicine
DX: R10.9 Unspecified abdominal pain (principal); Z79.899 Other long term (current) drug therapy
CPT/HCPCS: 36415; 71045; 80053; 80307; 81003; 83690; 84484; 84703; 85025; 93005; 93010; 96374; 99285-25; J7121

== ENCOUNTER 2025-08-11 03:13 | Emergency (ER) | payer OTHER ==
[~2025-08-11] VITALS: Ht 149.9 cm; Wt 91.2 kg
[~2025-08-11 03:13] MED LIST changes: +OMEPRAZOLE20 MG PO
[2025-08-11 03:51] LABS: BASOPHILS 0.3 % (0.1-1.2); EOSINOPHILS 0.6 % (0.7-5.8); LYMPHOCYTES 13.5 % (19.3-51.7); MCH 28.8 PG (25.6-32.2); MCHC 33.3 g/dL (32.2-35.5); MCV 86.3 fL (79.4-94.8); MONOCYTES 4.6 % (4.7-12.5); NEUTROPHILS 80.7 % (34.0-71.1); RBC 4.80 M/uL (3.93-5.22)
[2025-08-11 04:10] LABS: ABO O; RH POSITIVE
[2025-08-11] MEDS ORDERED: FAMOTIDINE 20 MG/ 2 ML VIAL IV ONE (04:15)
[2025-08-11] MEDS ORDERED: LACTATED RINGER'S 1,000 ML IV ONE (04:15)
[2025-08-11] MEDS ORDERED: MORPHINE SULFATE 4 MG/ML VIAL IV ONE (04:15)
[2025-08-11 04:29] LABS: GLOMERULAR FILTRATION RATE,EST 107.0 mL/min (>60); UREA NITROGEN 8.0 mg/dL (7-18)
[2025-08-11 05:49] LABS: BLOOD/HGB, URINE LARGE (Negative); KETONE, URINE NEGATIVE (Negative); LEUK ESTERASE, URINE TRACE (negative); NITRITE, URINE NEGATIVE (negative)
[2025-08-11 05:55] LABS: EPITHELIAL CELLS, URINE SQUAMOUS 1+ /lpf (0-1+)
[2025-08-11 05:56] LABS: BACTERIA, URINE 4+ /hpf (negative); CASTS, URINE NONE SEEN \\lpf; CRYSTALS, URINE NONE SEEN (0-1+); REFLEX CULTURE, URINE Yes (No)
[2025-08-11 07:38] VITALS: BP 101/68
== END 2025-08-11 07:38 | disposition home or self-care (01) ==
LOC: ED 03:13
PROVIDERS: Internal Medicine
DX: O03.9 Complete or unspecified spontaneous abortion without complication (principal)
CPT/HCPCS: 36415; 76801; 76817; 80048; 81001; 84702; 85025; 86900; 86901; 87088; 96374; 96375; 99284-25; J2270; J7121